=== PATIENT | male | born 1945 | race Caucasian/White ===

== ENCOUNTER 2023-12-25 18:56 | Inpatient (IN) | payer MEDICARE, OTHER ==
[~2023-12-25] VITALS: Ht 175.3 cm; Wt 93.4 kg
[2023-12-25] MEDS ORDERED: AMIODARONE HCL 150 MG/3 ML VIAL IV ONE (20:18)
[2023-12-25] MEDS: AMIODARONE HCL IV 150 MG in IV DEXTROSE 5% 100 ML IV ONE (20:45)
[2023-12-25] MEDS ORDERED: HYDROMORPHONE 1 MG/1 ML DISP.SYRIN ONE (20:57)
[2023-12-25] MEDS: AMIODARONE HCL IV 450 MG in IV DEXTROSE 5% 250 ML IV PRN (21:18)
[2023-12-25] MEDS: HYDROMORPHONE 1 MG/1 ML DISP.SYRIN IV ONE (21:20)
[2023-12-25] MEDS ORDERED: ONDANSETRON 4 MG/2 ML VIAL ONE (21:22)
[2023-12-25] MEDS: ONDANSETRON 4 MG/2 ML VIAL IV ONE (21:23)
[2023-12-25 21:39] LABS: EOSINOPHILS # (AUTO) 0.1 K/uL (0.0-0.7); EOSINOPHILS % (AUTO) 0.4 % (0.0-7.0); LYMPHOCYTES # (AUTO) 1.4 K/uL (0.8-4.8)
[2023-12-25 21:41] LABS: ALANINE AMINOTRANSFERASE 327 U/L (16-63); ALKALINE PHOSPHATASE 130 U/L (50-136); ASPARTATE AMINOTRANSFERASE 641 U/L (15-37); BILIRUBIN,DIRECT 2.5 mg/dL (0.0-0.2); BILIRUBIN,TOTAL 4.7 mg/dL (0.2-1.0); CARBON DIOXIDE 12 mmol/L (21-32); CHLORIDE 107 mmol/L (98-107); CREATININE 3.2 mg/dL (0.6-1.3); GLUCOSE 109 mg/dL (74-106); SODIUM SERUM 139 mmol/L (136-145); TOTAL PROTEIN, SERUM 6.2 g/dL (6.4-8.2); UREA NITROGEN, BLOOD 51 mg/dL (7-18)
[2023-12-25] MEDS: IV NORMAL SALINE 500 ML BAG IV ONE (21:45)
[2023-12-25 21:47] LABS: BASOPHILS # (AUTO) 0.2 K/UL (0.0-0.2); DIFFERENTIAL COMMENT 1; LYMPHOCYTES % (AUTO) 7.4 % (20.5-51.5); MEAN CORPUSCULAR HGB CONC 32 g/dL (32.5-36.3); MEAN CORPUSCULAR VOLUME 97.4 fL (73.0-96.2); MONOCYTES # (AUTO) 1.1 K/uL (0.1-1.30); MONOCYTES % (AUTO) 5.8 % (0.0-11.0); NEUTROPHILS # (AUTO) 16.6 K/uL (1.8-8.9); NEUTROPHILS % (AUTO) 85.4 % (38.5-71.5); PLATELET COUNT (AUTO) 241 K/uL (152-348); RED BLOOD CELL COUNT(AUTO) 6.53 MIL/uL (4.06-5.63); RED CELL DISTRIBUTION WIDTH 17.4 % (12.1-16.2); WHITE BLOOD COUNT (AUTO) 19.5 K/uL (3.6-10.2)
[2023-12-25 21:48] LABS: ALBUMIN 3.2 g/dL (3.4-5.0); LIPASE 13 U/L (16-77)
[2023-12-25 21:49] LABS: AMYLASE 30 U/L (25-115)
[2023-12-25 21:50] LABS: HEMATOCRIT 63.6 % (36.7-47.1); HEMOGLOBIN 20.2 g/dL (12.5-16.3)
[2023-12-25 21:51] LABS: POTASSIUM 8.6 mmol/L (3.5-5.1)
[2023-12-25] MEDS: ETOMIDATE 20 MG/10 ML VIAL IV ONE (21:53)
[2023-12-25] MEDS: SUCCINYLCHOLINE CHLORIDE 200 MG/10 ML VIAL IV ONE (21:54)
[2023-12-25] MEDS ORDERED: PROPOFOL 100 ML ONE (21:57)
[2023-12-25] MEDS ORDERED: PHENYLEPHRINE 10 MG/1 ML VIAL ONE ×2 (22:02→22:09)
[2023-12-25] MEDS: PHENYLEPHRINE 10 MG/1 ML VIAL ONE (22:11)
[2023-12-25] MEDS ORDERED: PHENYLEPHRINE IV 50 MG in IV NORMAL SALINE 245 ML IV PRN (22:15)
[2023-12-25 22:21] LABS: NT-PRO BNP 42996 pg/mL (0-125)
[2023-12-25] MEDS: PHENYLEPHRINE IV 50 MG in IV NORMAL SALINE 245 ML IV PRN (22:30)
[2023-12-25] MEDS ORDERED: CALCIUM CHLORIDE 1 GM/10 ML DISP.SYRIN IVP ONE (22:55)
[2023-12-25] MEDS ORDERED: FUROSEMIDE 20 MG/2 ML VIAL ONE (22:56)
[2023-12-25] MEDS ORDERED: SODIUM BICARBONATE 8.4% 50 MEQ/50 ML DISP.SYRIN IV ONE (22:56)
[2023-12-25] MEDS ORDERED: INSULIN REGULAR, HUMAN 300 UNIT/3 ML VIAL ONE (22:57)
[2023-12-25] MEDS ORDERED: DEXTROSE 50% 50 ML DISP.SYRIN ONE (22:59)
[2023-12-25] MEDS: INSULIN REGULAR, HUMAN 300 UNIT/3 ML VIAL IV ONE (23:00)
[2023-12-25] MEDS: CALCIUM CHLORIDE 1 GM/10 ML DISP.SYRIN IVP ONE (23:00)
[2023-12-25] MEDS: DEXTROSE 50% 50 ML DISP.SYRIN IV ONE (23:00)
[2023-12-25] MEDS: SODIUM BICARBONATE 8.4% 50 MEQ/50 ML DISP.SYRIN IV ONE (23:00)
[2023-12-25] MEDS: FUROSEMIDE 20 MG/2 ML VIAL IVP ONE (23:00)
[2023-12-25] MEDS ORDERED: ENOXAPARIN SODIUM 100 MG/ML DISP.SYRIN SQ ONE (23:00)
[2023-12-25] MEDS: PROPOFOL 100 ML IV PRN (23:15)
[2023-12-25 23:24] LABS: ANISOCYTOSIS 1+; BAND % (MANUAL) 1 % (0-10); LYMPHOCYTES % (MANUAL) 8 % (20-40); MONOCYTES % (MANUAL) 6 % (2-10); NEUTROPHILS % (MANUAL) 85 % (42-75); PLATELET ESTIMATE ADEQU
[2023-12-25 23:52] LABS: CALCIUM 10.2 mg/dL (8.5-10.1); CARBON DIOXIDE 14 mmol/L (21-32); CHLORIDE 107 mmol/L (98-107); CREATININE 3.4 mg/dL (0.6-1.3); GLUCOSE 171 mg/dL (74-106); SODIUM SERUM 141 mmol/L (136-145); UREA NITROGEN, BLOOD 53 mg/dL (7-18)
[2023-12-25 23:57] LABS: POTASSIUM 7.7 mmol/L (3.5-5.1)
[2023-12-26] VITALS (59 sets, daily range): BP systolic 68–166; BP diastolic 35–118; TEMP 95.5–99.1
[2023-12-26 00:22] LABS: ABG BASE EXCESS -18.6 mmol/L (-2.0-2.0); ABG HCO3 9.3 mmol/L (22.0-26.0); ABG PCO2 29.8 mmHg (35.0-48.0); ABG PH 7.111 (7.340-7.440); ABG PO2 220.5 mmHg (75.0-100.0); ABG SITE LEFT FEMORAL; AaDO2 99.1 mmHg; MetHb 0.8 % (0.0-1.5); O2Hb 98.5 % (94.0-97.0); VT, ABG 550 mL
[2023-12-26] MEDS ORDERED: SODIUM BICARBONATE 8.4% 50 MEQ/50 ML DISP.SYRIN IV ONE ×2 (00:52→03:57)
[2023-12-26 00:55] LABS: LACTIC ACID 10.4 mmol/L (0.4-2.0)
[2023-12-26] MEDS ORDERED: MAGNESIUM HYDROXIDE 30 ML LIQUID UDC PO PRN (01:00)
[2023-12-26] MEDS: SODIUM BICARBONATE 8.4% 50 MEQ/50 ML DISP.SYRIN IV ONE ×2 (01:00→04:57)
[2023-12-26] MEDS ORDERED: REMEDY ESSENTIAL ZINC PASTE 113 GM TP PRN (01:00)
[2023-12-26] MEDS ORDERED: ONDANSETRON 4 MG/2 ML VIAL IV PRN (01:00)
[2023-12-26] MEDS ORDERED: ZOLPIDEM 5 MG TABLET PO PRN (01:00)
[2023-12-26] MEDS: IV NORMAL SALINE 1000 ML BAG IV ONE (01:04)
[2023-12-26 01:45] LABS: ABG BASE EXCESS -12.2 mmol/L (-2.0-2.0); ABG HCO3 11.5 mmol/L (22.0-26.0); ABG PCO2 24.2 mmHg (35.0-48.0); ABG PH 7.295 (7.340-7.440); ABG PO2 349.6 mmHg (75.0-100.0); ABG SITE LEFT FEMORAL; AaDO2 99.7 mmHg; COHb 0.3 % (0.0-3.9); O2Hb 98.7 % (94.0-97.0); VT, ABG 550 mL
[2023-12-26] MEDS: ENOXAPARIN SODIUM 100 MG/ML DISP.SYRIN SQ ONE (03:05)
[2023-12-26] MEDS ORDERED: PIPERACILLIN/TAZOBACTAM/D5W 50 ML IV ONE (03:46)
[2023-12-26] MEDS ORDERED: SODIUM POLYSTYRENE SULFONATE 15 G/60 ML LIQUID UDC ONE (03:55)
[2023-12-26] MEDS: PIPERACILLIN SODIUM/TAZOBACTAM 3.375 G in IV DEXTROSE 5% 50 ML IV ONE (04:12)
[2023-12-26] MEDS: SODIUM POLYSTYRENE SULFONATE 15 G/60 ML LIQUID UDC PO ONE (04:21)
[2023-12-26] MEDS: SODIUM BICARBONATE 8.4% 150 MEQ in IV D5W 1000ML 1,000 ML IV PRN (04:50)
[2023-12-26] MEDS: PHENYLEPHRINE 10 MG/1 ML VIAL ONE (04:56)
[2023-12-26] MEDS ORDERED: ETOMIDATE 20 MG/10 ML VIAL ONE (05:00)
[2023-12-26] MEDS ORDERED: CALCIUM CHLORIDE 1 GM/10 ML DISP.SYRIN IVP ONE (05:36)
[2023-12-26] MEDS ORDERED: NOREPINEPHRINE BITARTRATE 4 MG/4 ML VIAL IV ONE (07:35)
[2023-12-26] MEDS ORDERED: NOREPINEPHRINE BITARTRATE 8 MG in IV NORMAL SALINE 242 ML IV PRN (07:45)
[2023-12-26] MEDS ORDERED: DEXTROSE 50% 50 ML DISP.SYRIN IV PRN (08:30)
[2023-12-26] MEDS ORDERED: INSULIN REGULAR, HUMAN 300 UNIT/3 ML VIAL SQ PRN ×2 (08:30→14:30)
[2023-12-26] MEDS: PHENYLEPHRINE IV 100 MG in IV NORMAL SALINE 240 ML IV PRN ×2 (09:00→15:58)
[2023-12-26] MEDS ORDERED: PANTOPRAZOLE SODIUM 40 MG VIAL ONE (09:24)
[2023-12-26 09:29] LABS: DIFFERENTIAL COMMENT 0; MONOCYTES # (AUTO) 0.5 K/uL (0.1-1.30)
[2023-12-26] MEDS: PANTOPRAZOLE SODIUM 40 MG VIAL IV SCH (09:31)
[2023-12-26] MEDS: NOREPINEPHRINE BITARTRATE 8 MG in IV NORMAL SALINE 242 ML IV PRN (09:37)
[2023-12-26 09:40] LABS: CALCIUM 10.3 mg/dL (8.5-10.1); CARBON DIOXIDE 11 mmol/L (21-32); CHLORIDE 109 mmol/L (98-107); CREATININE 3.1 mg/dL (0.6-1.3); GLUCOSE 61 mg/dL (74-106); POTASSIUM 6.1 mmol/L (3.5-5.1); SODIUM SERUM 145 mmol/L (136-145); UREA NITROGEN, BLOOD 46 mg/dL (7-18)
[2023-12-26 09:47] LABS: BASOPHILS % (AUTO) 0.2 % (0.0-2.0); HEMOGLOBIN 19.2 g/dL (12.5-16.3); LYMPHOCYTES # (AUTO) 1.1 K/uL (0.8-4.8); MEAN CORPUSCULAR HEMOGLOBIN 30.2 uug (23.8-33.4); MEAN CORPUSCULAR HGB CONC 31 g/dL (32.5-36.3); MEAN CORPUSCULAR VOLUME 96.6 fL (73.0-96.2); MONOCYTES % (AUTO) 2.7 % (0.0-11.0); NEUTROPHILS # (AUTO) 17.1 K/uL (1.8-8.9); NEUTROPHILS % (AUTO) 91.1 % (38.5-71.5); PLATELET COUNT (AUTO) 93 K/uL (152-348); RED BLOOD CELL COUNT(AUTO) 6.34 MIL/uL (4.06-5.63); RED CELL DISTRIBUTION WIDTH 17.6 % (12.1-16.2); WHITE BLOOD COUNT (AUTO) 18.8 K/uL (3.6-10.2)
[2023-12-26 10:05] LABS: HEMATOCRIT 61.3 % (36.7-47.1)
[2023-12-26] MEDS ORDERED: PROPOFOL 100 ML ONE (10:34)
[2023-12-26] MEDS ORDERED: DEXTROSE 25% 10 ML DISP.SYRIN IV ONE (11:30)
[2023-12-26] MEDS ORDERED: IV NS 1000 ML 1,000 ML IV PRN (11:45)
[2023-12-26 11:50] LABS: ALBUMIN 2.6 g/dL (3.4-5.0); BILIRUBIN,DIRECT 3.3 mg/dL (0.0-0.2); BILIRUBIN,TOTAL 5.6 mg/dL (0.2-1.0); TOTAL PROTEIN, SERUM 4.9 g/dL (6.4-8.2)
[2023-12-26] MEDS: BLOOD SUGAR DIAGNOSTIC 1 EACH STRIP VI SCH ×3 (11:57→18:25)
[2023-12-26] MEDS ORDERED: DEXTROSE 50% 50 ML DISP.SYRIN ONE ×3 (11:58→17:16)
[2023-12-26] MEDS ORDERED: PIPERACILLIN SODIUM/TAZOBACTAM 3.375 G in IV DEXTROSE 5% 50 ML IV SCH (12:00)
[2023-12-26] MEDS: DEXTROSE 50% 50 ML DISP.SYRIN IV ONE ×2 (12:00→12:51)
[2023-12-26] MEDS: NOREPINEPHRINE BITARTRATE 32 MG in IV NORMAL SALINE 218 ML IV PRN (12:11)
[2023-12-26] MEDS: PIPERACILLIN/TAZO 2.25 G in IV DEXTROSE 5% 50 ML IV SCH (12:37)
[2023-12-26] MEDS ORDERED: HEPARIN/D5W DRIP 500 ML IV PRN ×2 (12:41→12:45)
[2023-12-26] MEDS ORDERED: HEPARIN SODIUM,PORCINE 5,000 UNITS/ML VIAL IV ONE (12:45)
[2023-12-26] MEDS: INSULIN REGULAR, HUMAN 300 UNIT/3 ML VIAL IV ONE (12:51)
[2023-12-26 13:00] LABS: ABG BASE EXCESS -12.1 mmol/L (-2.0-2.0); ABG HCO3 10.5 mmol/L (22.0-26.0); ABG PCO2 20.6 mmHg (35.0-48.0); ABG PH 7.327 (7.340-7.440); ABG PO2 76.3 mmHg (75.0-100.0); ABG SITE RIGHT RADIAL; ABG TOTAL HEMOGLOBIN 20.5 G/dL (14.0-18.0); AaDO2 94.7 mmHg; COHb 0.3 % (0.0-3.9); MetHb 0.5 % (0.0-1.5); VT, ABG 550 mL
[2023-12-26] MEDS ORDERED: HEPARIN SODIUM,PORCINE 5,000 UNITS/ML VIAL ONE (13:11)
[2023-12-26] MEDS: HEPARIN SODIUM,PORCINE 5,000 UNITS/ML VIAL SQ SCH (13:13)
[2023-12-26] MEDS ORDERED: VASOPRESSIN 20 UNIT in IV NORMAL SALINE 40 ML IV PRN (13:30)
[2023-12-26 14:35] LABS: CALCIUM 9.8 mg/dL (8.5-10.1); CARBON DIOXIDE 16 mmol/L (21-32); CHLORIDE 108 mmol/L (98-107); CREATININE 3.5 mg/dL (0.6-1.3); GLUCOSE 125 mg/dL (74-106); POTASSIUM 5.9 mmol/L (3.5-5.1); SODIUM SERUM 146 mmol/L (136-145); UREA NITROGEN, BLOOD 47 mg/dL (7-18)
[2023-12-26 15:23] LABS: HEMATOCRIT 60.1 % (36.7-47.1); HEMOGLOBIN 18.7 g/dL (12.5-16.3)
[2023-12-26] MEDS: DEXTROSE 50% 50 ML DISP.SYRIN IV PRN (17:18)
[2023-12-26] MEDS ORDERED: methylPREDNISolone SOD SUCC 40 MG/ML VIAL IV SCH (18:00)
[2023-12-26] MEDS: PROPOFOL 100 ML IV PRN (18:07)
[2023-12-26] MEDS ORDERED: ALPR0.5T8 PO (18:13)
[2023-12-26] MEDS ORDERED: CARB1TAB21 PO (18:14)
[2023-12-26] MEDS ORDERED: MONT10TA33 PO (18:17)
[2023-12-26] MEDS ORDERED: APIX5TAB PO (18:18)
[2023-12-26] MEDS ORDERED: DAPA5TAB PO (18:19)
[2023-12-26] MEDS ORDERED: ZOLP5TAB8 PO (18:25)
[2023-12-26] MEDS ORDERED: FURO20TA4 PO (18:26)
[2023-12-26] MEDS ORDERED: HYDROCORTISONE SOD SUCCINATE 100 MG/2 ML VIAL IV ONE (18:28)
[2023-12-26] MEDS: HYDROCORTISONE SOD SUCCINATE 100 MG/2 ML VIAL IV SCH (18:31)
[2023-12-26 18:34] LABS: BAND % (MANUAL) 8 % (0-10); LYMPHOCYTES % (MANUAL) 5 % (20-40); MONOCYTES % (MANUAL) 4 % (2-10); NEUTROPHILS % (MANUAL) 83 % (42-75); PLATELET ESTIMATE DECREASED
[2023-12-26 18:35] LABS: ANISOCYTOSIS 1+
[2023-12-27] VITALS (96 sets, daily range): BP systolic 65–133; BP diastolic 52–108; TEMP 96.8–100; O2SAT 91–99
[2023-12-27] MEDS ORDERED: DEXTROSE 50% 50 ML DISP.SYRIN ONE ×2 (00:03→09:17)
[2023-12-27] MEDS ORDERED: HYDROCORTISONE SOD SUCCINATE 100 MG/2 ML VIAL IV ONE ×3 (00:12→13:10)
[2023-12-27] MEDS: IV 10% DEXTROSE 1,000 ML IV PRN (00:55)
[2023-12-27] MEDS ORDERED: PROPOFOL 100 ML ONE (02:06)
[2023-12-27] MEDS ORDERED: PHENYLEPHRINE 10 MG/1 ML VIAL ONE (04:11)
[2023-12-27 04:46] LABS: BASOPHILS % (AUTO) 0.1 % (0.0-2.0); EOSINOPHILS # (AUTO) 0.1 K/uL (0.0-0.7); EOSINOPHILS % (AUTO) 0.6 % (0.0-7.0); HEMOGLOBIN 18.9 g/dL (12.5-16.3); LYMPHOCYTES # (AUTO) 0.6 K/uL (0.8-4.8); LYMPHOCYTES % (AUTO) 3.2 % (20.5-51.5); MEAN CORPUSCULAR HEMOGLOBIN 30.8 uug (23.8-33.4); MEAN CORPUSCULAR HGB CONC 31 g/dL (32.5-36.3); MEAN CORPUSCULAR VOLUME 99.6 fL (73.0-96.2); MONOCYTES # (AUTO) 1.1 K/uL (0.1-1.30); MONOCYTES % (AUTO) 5.9 % (0.0-11.0); NEUTROPHILS % (AUTO) 90.2 % (38.5-71.5); PLATELET COUNT (AUTO) 53 K/uL (152-348); RED BLOOD CELL COUNT(AUTO) 6.13 MIL/uL (4.06-5.63); RED CELL DISTRIBUTION WIDTH 18.4 % (12.1-16.2); WHITE BLOOD COUNT (AUTO) 18.9 K/uL (3.6-10.2)
[2023-12-27 04:52] LABS: DIFFERENTIAL COMMENT 1; HEMATOCRIT 61.1 % (36.7-47.1)
[2023-12-27 04:57] LABS: ALKALINE PHOSPHATASE 265 U/L (50-136); BILIRUBIN,TOTAL 7.5 mg/dL (0.2-1.0); CALCIUM 8.9 mg/dL (8.5-10.1); CARBON DIOXIDE 15 mmol/L (21-32); CHLORIDE 105 mmol/L (98-107); CREATINE KINASE, TOTAL 435 U/L (39-308); GLUCOSE 139 mg/dL (74-106); PHOSPHOROUS 6.9 mg/dL (2.5-4.9); SODIUM SERUM 140 mmol/L (136-145); TOTAL PROTEIN, SERUM 4.7 g/dL (6.4-8.2)
[2023-12-27 05:14] LABS: POTASSIUM 7.1 mmol/L (3.5-5.1)
[2023-12-27 05:53] LABS: BAND % (MANUAL) 3 % (0-10)
[2023-12-27 05:54] LABS: LYMPHOCYTES % (MANUAL) 6 % (20-40); MONOCYTES % (MANUAL) 3 % (2-10); NEUTROPHILS % (MANUAL) 88 % (42-75)
[2023-12-27 05:56] LABS: ANISOCYTOSIS 2+; PLATELET ESTIMATE DECREASED
[2023-12-27] MEDS: AMIODARONE HCL IV 450 MG in IV DEXTROSE 5% 250 ML IV PRN (08:36)
[2023-12-27] MEDS ORDERED: SODIUM BICARBONATE 8.4% 50 MEQ/50 ML DISP.SYRIN IV ONE (08:41)
[2023-12-27] MEDS: SODIUM BICARBONATE 8.4% 50 MEQ/50 ML DISP.SYRIN IV ONE (08:43)
[2023-12-27] MEDS ORDERED: PANTOPRAZOLE SODIUM 40 MG VIAL ONE (08:45)
[2023-12-27] MEDS ORDERED: ENOXAPARIN SODIUM 100 MG/ML DISP.SYRIN SQ SCH (09:00)
[2023-12-27] MEDS: MEROPENEM 500 MG in IV NORMAL SALINE 50 ML IV SCH (09:09)
[2023-12-27 09:15] LABS: THYROID STIMULATING HORMONE 2.631 mIU/mL (0.358-3.740)
[2023-12-27] MEDS: DEXTROSE 50% 50 ML DISP.SYRIN IV ONE (09:29)
[2023-12-27] MEDS: INSULIN REGULAR, HUMAN 300 UNIT/3 ML VIAL IV ONE (09:32)
[2023-12-27 10:18] LABS: BASOPHILS % (AUTO) 0.1 % (0.0-2.0); EOSINOPHILS # (AUTO) 0.2 K/uL (0.0-0.7); EOSINOPHILS % (AUTO) 1.3 % (0.0-7.0); HEMATOCRIT 58.5 % (36.7-47.1); HEMOGLOBIN 17.4 g/dL (12.5-16.3); LYMPHOCYTES # (AUTO) 0.4 K/uL (0.8-4.8); LYMPHOCYTES % (AUTO) 2.6 % (20.5-51.5); MEAN CORPUSCULAR HEMOGLOBIN 30.3 uug (23.8-33.4); MEAN CORPUSCULAR HGB CONC 30 g/dL (32.5-36.3); MEAN CORPUSCULAR VOLUME 102.1 fL (73.0-96.2); MONOCYTES % (AUTO) 6.1 % (0.0-11.0); NEUTROPHILS # (AUTO) 15.4 K/uL (1.8-8.9); NEUTROPHILS % (AUTO) 89.9 % (38.5-71.5); PLATELET COUNT (AUTO) 57 K/uL (152-348); RED BLOOD CELL COUNT(AUTO) 5.73 MIL/uL (4.06-5.63); RED CELL DISTRIBUTION WIDTH 18.3 % (12.1-16.2); WHITE BLOOD COUNT (AUTO) 17.1 K/uL (3.6-10.2)
[2023-12-27 10:23] LABS: DIFFERENTIAL COMMENT 1
[2023-12-27 11:06] LABS: ALANINE AMINOTRANSFERASE 2913 U/L (16-63); ALBUMIN 1.9 g/dL (3.4-5.0); ALKALINE PHOSPHATASE 285 U/L (50-136); BILIRUBIN,TOTAL 7.2 mg/dL (0.2-1.0); CALCIUM 7.9 mg/dL (8.5-10.1); CARBON DIOXIDE 11 mmol/L (21-32); CHLORIDE 103 mmol/L (98-107); CREATININE 4.5 mg/dL (0.6-1.3); GLUCOSE 285 mg/dL (74-106); MAGNESIUM 1.7 mg/dL (1.8-2.4); SODIUM SERUM 143 mmol/L (136-145); TOTAL PROTEIN, SERUM 3.8 g/dL (6.4-8.2); UREA NITROGEN, BLOOD 49 mg/dL (7-18)
[2023-12-27 11:09] LABS: PHOSPHOROUS 8.8 mg/dL (2.5-4.9); POTASSIUM 6.9 mmol/L (3.5-5.1)
[2023-12-27 12:05] LABS: ASPARTATE AMINOTRANSFERASE 6027 U/L (15-37)
[2023-12-27] MEDS ORDERED: methylPREDNISolone SOD SUCC 125 MG/2 ML VIAL ONE (13:04)
[2023-12-27] MEDS ORDERED: MAGNESIUM SULFATE/D5W 100 ML ONE (14:01)
[2023-12-27] MEDS: MAGNESIUM SULFATE/D5W 100 ML IV ONE (14:03)
[2023-12-27] MEDS ORDERED: SODIUM BICARBONATE 8.4% 50 MEQ in IV D5W 1000ML 1,000 ML IV PRN (15:00)
[2023-12-27] MEDS: SODIUM BICARBONATE 8.4% 50 MEQ in IV D5W 1000ML 1,000 ML IV PRN (15:49)
[2023-12-27] MEDS: IV NORMAL SALINE 500 ML IV ONE (16:23)
[2023-12-27] MEDS ORDERED: INSULIN REGULAR, HUMAN 300 UNIT/3 ML VIAL SQ PRN ×2 (16:30)
[2023-12-27] MEDS: BLOOD SUGAR DIAGNOSTIC 1 EACH STRIP VI SCH (16:32)
[2023-12-27 17:36] LABS: BAND % (MANUAL) 13 % (0-10); LYMPHOCYTES % (MANUAL) 2 % (20-40); MONOCYTES % (MANUAL) 4 % (2-10); NEUTROPHILS % (MANUAL) 81 % (42-75)
[2023-12-27 17:37] LABS: PLATELET ESTIMATE DECREASED
[2023-12-27 17:38] LABS: ANISOCYTOSIS 1+; TEAR DROP CELLS 1+
[2023-12-27] MEDS: PANTOPRAZOLE SODIUM 40 MG VIAL IV SCH (21:48)
[2023-12-28] VITALS (100 sets, daily range): BP systolic 69–127; BP diastolic 42–98; TEMP 92.8–98.7; O2SAT 24–98
[2023-12-28 00:01] LABS: ABG BASE EXCESS -18.2 mmol/L (-2.0-2.0); ABG HCO3 5.4 mmol/L (22.0-26.0); ABG PH 7.245 (7.340-7.440); ABG PO2 148.2 mmHg (75.0-100.0); ABG SITE RIGHT BRACHIAL; ABG TOTAL HEMOGLOBIN 18.9 G/dL (14.0-18.0); AaDO2 98.6 mmHg; COHb 0.3 % (0.0-3.9); MetHb 0.7 % (0.0-1.5); O2Hb 97.7 % (94.0-97.0); VT, ABG 550 mL
[2023-12-28] MEDS: DEXTROSE 50% 50 ML DISP.SYRIN IV PRN (00:23)
[2023-12-28 01:13] LABS: ABG BASE EXCESS -19.9 mmol/L (-2.0-2.0); ABG HCO3 6.9 mmol/L (22.0-26.0); ABG PCO2 20.3 mmHg (35.0-48.0); ABG PH 7.147 (7.340-7.440); ABG PO2 94.5 mmHg (75.0-100.0); ABG SITE RIGHT RADIAL; ABG TOTAL HEMOGLOBIN 16.2 G/dL (14.0-18.0); AaDO2 95.2 mmHg; COHb 1.2 % (0.0-3.9); MetHb 0.9 % (0.0-1.5); O2Hb 92.9 % (94.0-97.0); VT, ABG 550 mL
[2023-12-28 04:41] LABS: BASOPHILS # (AUTO) 0.1 K/UL (0.0-0.2); EOSINOPHILS # (AUTO) 0.4 K/uL (0.0-0.7); HEMOGLOBIN 15.5 g/dL (12.5-16.3); MONOCYTES # (AUTO) 1.1 K/uL (0.1-1.30)
[2023-12-28 04:43] LABS: BASOPHILS % (AUTO) 0.4 % (0.0-2.0); HEMATOCRIT 52.4 % (36.7-47.1); LYMPHOCYTES # (AUTO) 0.7 K/uL (0.8-4.8); LYMPHOCYTES % (AUTO) 3.9 % (20.5-51.5); MEAN CORPUSCULAR HEMOGLOBIN 30.9 uug (23.8-33.4); MEAN CORPUSCULAR HGB CONC 30 g/dL (32.5-36.3); MEAN CORPUSCULAR VOLUME 104.5 fL (73.0-96.2); MONOCYTES % (AUTO) 5.7 % (0.0-11.0); NEUTROPHILS # (AUTO) 16.3 K/uL (1.8-8.9); RED BLOOD CELL COUNT(AUTO) 5.01 MIL/uL (4.06-5.63); RED CELL DISTRIBUTION WIDTH 18.9 % (12.1-16.2); WHITE BLOOD COUNT (AUTO) 18.5 K/uL (3.6-10.2)
[2023-12-28 04:48] LABS: DIFFERENTIAL COMMENT 1; PLATELET COUNT (AUTO) 40 K/uL (152-348)
[2023-12-28 04:56] LABS: ALANINE AMINOTRANSFERASE 3144 U/L (16-63)
[2023-12-28 05:12] LABS: ABG BASE EXCESS -21.4 mmol/L (-2.0-2.0); ABG HCO3 6.1 mmol/L (22.0-26.0); ABG PCO2 19.6 mmHg (35.0-48.0); ABG PO2 104.3 mmHg (75.0-100.0); ABG SITE RIGHT RADIAL; AaDO2 95.9 mmHg; COHb 1.1 % (0.0-3.9); MetHb 0.9 % (0.0-1.5); O2Hb 93.8 % (94.0-97.0); VT, ABG 550 mL
[2023-12-28 05:32] LABS: ALBUMIN 1.8 g/dL (3.4-5.0); ALKALINE PHOSPHATASE 504 U/L (50-136); ASPARTATE AMINOTRANSFERASE < 5 U/L (15-37); BILIRUBIN,DIRECT 7.2 mg/dL (0.0-0.2); BILIRUBIN,TOTAL 12.4 mg/dL (0.2-1.0); CALCIUM 7.1 mg/dL (8.5-10.1); CHLORIDE 96 mmol/L (98-107); GLUCOSE 268 mg/dL (74-106); MAGNESIUM 1.7 mg/dL (1.8-2.4); SODIUM SERUM 135 mmol/L (136-145); TOTAL PROTEIN, SERUM 3.6 g/dL (6.4-8.2); UREA NITROGEN, BLOOD 35 mg/dL (7-18)
[2023-12-28 05:39] LABS: CARBON DIOXIDE 9 mmol/L (21-32); PHOSPHOROUS 8.5 mg/dL (2.5-4.9); POTASSIUM 6.4 mmol/L (3.5-5.1)
[2023-12-28 05:43] LABS: LACTIC ACID 22.5 mmol/L (0.4-2.0)
[2023-12-28 06:04] LABS: ANISOCYTOSIS 2+; BAND % (MANUAL) 2 % (0-10); LYMPHOCYTES % (MANUAL) 2 % (20-40); MONOCYTES % (MANUAL) 4 % (2-10); NEUTROPHILS % (MANUAL) 92 % (42-75); PLATELET ESTIMATE MARKED DECREASED
[2023-12-28] MEDS: SODIUM BICARBONATE 8.4% 50 MEQ/50 ML DISP.SYRIN IV ONE (08:12)
[2023-12-28] MEDS: CALCIUM CHLORIDE 1 GM in IV NORMAL SALINE 100 ML IV ONE (10:08)
[2023-12-28] MEDS: IV NORMAL SALINE 500 ML IV PRN (10:09)
[2023-12-28] MEDS: SODIUM BICARBONATE 8.4% 150 MEQ in IV D5W 1000ML 1,000 ML IV PRN (10:35)
[2023-12-28] MEDS: MAGNESIUM SULFATE/D5W 100 ML IV SCH (13:01)
[2023-12-28 13:20] LABS: CALCIUM 7.9 mg/dL (8.5-10.1); CHLORIDE 97 mmol/L (98-107); GLUCOSE 269 mg/dL (74-106); SODIUM SERUM 137 mmol/L (136-145); UREA NITROGEN, BLOOD 36 mg/dL (7-18)
[2023-12-28 13:27] LABS: CARBON DIOXIDE 10 mmol/L (21-32); POTASSIUM 6.6 mmol/L (3.5-5.1)
[2023-12-28] MEDS: ALBUMIN HUMAN 25% 50 ML IV PRN (18:28)
[2023-12-28] MEDS: ALBUMIN HUMAN 25% 100 ML IV SCH (23:40)
[2023-12-29] VITALS (93 sets, daily range): BP systolic 75–137; BP diastolic 49–86; TEMP 98–101.1; O2SAT 46–94
[2023-12-29] MEDS: AMIODARONE HCL 150 MG/3 ML VIAL IV ONE (03:53)
[2023-12-29 04:19] LABS: BASOPHILS # (AUTO) 0.1 K/UL (0.0-0.2); BASOPHILS % (AUTO) 0.3 % (0.0-2.0); DIFFERENTIAL COMMENT 0; EOSINOPHILS # (AUTO) 0.6 K/uL (0.0-0.7); EOSINOPHILS % (AUTO) 2.5 % (0.0-7.0); HEMATOCRIT 42.7 % (36.7-47.1); HEMOGLOBIN 12.4 g/dL (12.5-16.3); LYMPHOCYTES # (AUTO) 0.2 K/uL (0.8-4.8); LYMPHOCYTES % (AUTO) 0.9 % (20.5-51.5); MEAN CORPUSCULAR HGB CONC 29 g/dL (32.5-36.3); MEAN CORPUSCULAR VOLUME 103.1 fL (73.0-96.2); MONOCYTES # (AUTO) 1.4 K/uL (0.1-1.30); MONOCYTES % (AUTO) 5.5 % (0.0-11.0); NEUTROPHILS # (AUTO) 23.4 K/uL (1.8-8.9); NEUTROPHILS % (AUTO) 90.8 % (38.5-71.5); RED BLOOD CELL COUNT(AUTO) 4.14 MIL/uL (4.06-5.63); WHITE BLOOD COUNT (AUTO) 25.8 K/uL (3.6-10.2)
[2023-12-29] MEDS ORDERED: ALBUMIN HUMAN 25% 50 ML ONE (04:21)
[2023-12-29 04:34] LABS: CARBON DIOXIDE 11 mmol/L (21-32); CHLORIDE 95 mmol/L (98-107); CREATININE 3.5 mg/dL (0.6-1.3); GLUCOSE 187 mg/dL (74-106); MAGNESIUM 1.8 mg/dL (1.8-2.4); PHOSPHOROUS 7.1 mg/dL (2.5-4.9); SODIUM SERUM 135 mmol/L (136-145); UREA NITROGEN, BLOOD 28 mg/dL (7-18)
[2023-12-29 04:42] LABS: POTASSIUM 6.3 mmol/L (3.5-5.1)
[2023-12-29 04:44] LABS: PLATELET COUNT (AUTO) 21 K/uL (152-348)
[2023-12-29] MEDS: VASOPRESSIN 40 UNIT in IV NORMAL SALINE 40 ML IV PRN (05:10)
[2023-12-29 05:52] LABS: ABG BASE EXCESS -18.7 mmol/L (-2.0-2.0); ABG HCO3 7.9 mmol/L (22.0-26.0); ABG PCO2 22.1 mmHg (35.0-48.0); ABG PH 7.172 (7.340-7.440); ABG PO2 73.9 mmHg (75.0-100.0); ABG SITE RIGHT RADIAL; ABG TOTAL HEMOGLOBIN 13.6 G/dL (14.0-18.0); AaDO2 91.3 mmHg; MetHb 1.7 % (0.0-1.5); O2Hb 87.5 % (94.0-97.0); VT, ABG 550 mL
[2023-12-29 06:54] LABS: LYMPHOCYTES % (MANUAL) 2 % (20-40); MONOCYTES % (MANUAL) 12 % (2-10); NEUTROPHILS % (MANUAL) 86 % (42-75)
[2023-12-29 06:55] LABS: ANISOCYTOSIS 1+; PLATELET ESTIMATE DECREASED
[2023-12-29] MEDS: DEXTROSE 50% 50 ML DISP.SYRIN IV ONE (08:22)
[2023-12-29] MEDS: INSULIN REGULAR, HUMAN 300 UNIT/3 ML VIAL IV ONE (08:24)
[2023-12-29] MEDS: SODIUM BICARBONATE 8.4% 50 MEQ/50 ML DISP.SYRIN IV ONE (08:34)
[2023-12-29 10:49] LABS: CALCIUM 7.7 mg/dL (8.5-10.1); CARBON DIOXIDE 12 mmol/L (21-32); CHLORIDE 97 mmol/L (98-107); CREATININE 3.7 mg/dL (0.6-1.3); GLUCOSE 128 mg/dL (74-106); POTASSIUM 6.1 mmol/L (3.5-5.1); SODIUM SERUM 137 mmol/L (136-145); UREA NITROGEN, BLOOD 28 mg/dL (7-18)
[2023-12-29] MEDS: ACETAMINOPHEN 325 MG TABLET PO PRN (20:54)
[2023-12-29] MEDS ORDERED: VANCOMYCIN 1000 MG VIAL ONE (22:24)
[2023-12-29] MEDS: VANCOMYCIN IV 2,000 MG in IV DEXTROSE 5% 500 ML IV ONE (23:50)
[2023-12-30] VITALS (80 sets, daily range): BP systolic 42–126; BP diastolic 17–77; TEMP 95–98.2; O2SAT 38–92
[2023-12-30 05:18] LABS: BASOPHILS # (AUTO) 0.1 K/UL (0.0-0.2); LYMPHOCYTES # (AUTO) 0.4 K/uL (0.8-4.8); LYMPHOCYTES % (AUTO) 1.6 % (20.5-51.5); MEAN CORPUSCULAR HEMOGLOBIN 31.6 uug (23.8-33.4); MEAN CORPUSCULAR VOLUME 106.5 fL (73.0-96.2); WHITE BLOOD COUNT (AUTO) 27.4 K/uL (3.6-10.2)
[2023-12-30 05:20] LABS: BASOPHILS % (AUTO) 0.3 % (0.0-2.0); EOSINOPHILS # (AUTO) 0.2 K/uL (0.0-0.7); EOSINOPHILS % (AUTO) 0.7 % (0.0-7.0); HEMATOCRIT 32.2 % (36.7-47.1); HEMOGLOBIN 9.5 g/dL (12.5-16.3); MEAN CORPUSCULAR HGB CONC 30 g/dL (32.5-36.3); MONOCYTES # (AUTO) 1.6 K/uL (0.1-1.30); MONOCYTES % (AUTO) 5.9 % (0.0-11.0); NEUTROPHILS # (AUTO) 25.1 K/uL (1.8-8.9); NEUTROPHILS % (AUTO) 91.5 % (38.5-71.5); RED BLOOD CELL COUNT(AUTO) 3.02 MIL/uL (4.06-5.63); RED CELL DISTRIBUTION WIDTH 19.2 % (12.1-16.2)
[2023-12-30 05:48] LABS: CHLORIDE 94 mmol/L (98-107); CREATININE 3.3 mg/dL (0.6-1.3); GLUCOSE 73 mg/dL (74-106); MAGNESIUM 1.9 mg/dL (1.8-2.4); SODIUM SERUM 136 mmol/L (136-145); TRIGLYCERIDES 165 MG/DL (30-150); UREA NITROGEN, BLOOD 24 mg/dL (7-18)
[2023-12-30 05:55] LABS: CALCIUM 7.3 mg/dL (8.5-10.1)
[2023-12-30 06:04] LABS: POTASSIUM 6.3 mmol/L (3.5-5.1)
[2023-12-30 06:05] LABS: CARBON DIOXIDE 10 mmol/L (21-32)
[2023-12-30 06:07] LABS: PLATELET COUNT (AUTO) 27 K/uL (152-348)
[2023-12-30 06:08] LABS: DIFFERENTIAL COMMENT 1
[2023-12-30 06:26] LABS: BAND % (MANUAL) 4 % (0-10)
[2023-12-30 06:27] LABS: ANISOCYTOSIS 2+; LYMPHOCYTES % (MANUAL) 4 % (20-40); MONOCYTES % (MANUAL) 4 % (2-10); NEUTROPHILS % (MANUAL) 88 % (42-75); PLATELET ESTIMATE DECREASED
[2023-12-30] MEDS ORDERED: EPINEPHRINE 5 MG in IV NORMAL SALINE 245 ML IV PRN (07:45)
[2023-12-30] MEDS: CALCIUM GLUCONATE IV 1 GM in IV NORMAL SALINE 100 ML IV ONE (08:12)
[2023-12-30] MEDS: EPINEPHRINE 10 MG in IV NORMAL SALINE 240 ML IV PRN (08:13)
[2023-12-30 08:24] LABS: ABG BASE EXCESS -23.5 mmol/L (-2.0-2.0); ABG HCO3 6.2 mmol/L (22.0-26.0); ABG PCO2 25.5 mmHg (35.0-48.0); ABG PH 7.004 (7.340-7.440); ABG PO2 137.8 mmHg (75.0-100.0); ABG SITE RIGHT RADIAL; ABG TOTAL HEMOGLOBIN 10.1 G/dL (14.0-18.0); AaDO2 97.3 mmHg; COHb 2.3 % (0.0-3.9); MetHb 3.2 % (0.0-1.5); O2Hb 92.5 % (94.0-97.0); VT, ABG 550 mL
[2023-12-30] MEDS ORDERED: IV 10% DEXTROSE 1,000 ML IV PRN (08:30)
[2023-12-30] MEDS: SODIUM CHLORIDE 4 MEQ/ML VIAL 154 MEQ in IV 10% DEXTROSE 1,000 ML IV PRN (09:34)
[2023-12-30 09:48] LABS: BILIRUBIN,TOTAL 26.3 mg/dL (0.2-1.0)
[2023-12-30 09:49] LABS: ALBUMIN 2.7 g/dL (3.4-5.0); BILIRUBIN,DIRECT 12.2 mg/dL (0.0-0.2); TOTAL PROTEIN, SERUM 3.2 g/dL (6.4-8.2)
[2023-12-30 11:06] LABS: LACTIC ACID 28.6 mmol/L (0.4-2.0)
[2023-12-30] MEDS ORDERED: VANCOMYCIN IV 500 MG in IV DEXTROSE 5% 100 ML IV PRN (12:00)
[2023-12-31 06:06] LABS: ALBUMIN 2.3 g/dL (2.9-4.4); ALPHA-1-GLOBULIN 0.2 g/dL (0.0-0.4); ALPHA-2-GLOBULIN 0.4 g/dL (0.4-1.0); BETA GLOBULIN 0.7 g/dL (0.7-1.3); GAMMA GLOBULIN 0.9 g/dL (0.4-1.8); GLOBULIN, TOTAL 2.2 g/dL (2.2-3.9); M-SPIKE 0.2 g/dL (Not Observed)
== END 2023-12-30 23:45 | DRG 870 ==
LOC: ER 18:59 → TRANSITION 22:45 → CCU 12-27 21:07
PROVIDERS: ADMIT Student in an Organized Health Care Education/Training Program; ATTEND Student in an Organized Health Care Education/Training Program
PROC: 5A1955Z Respiratory Ventilation, Greater than 96 Consecutive Hours (ICD-10-PCS; principal; 2023-12-25)
PROC: 0BH17EZ Insertion of Endotracheal Airway into Trachea, Via Natural or Artificial Opening (ICD-10-PCS; 2023-12-25)
PROC: 02HV33Z Insertion of Infusion Device into Superior Vena Cava, Percutaneous Approach (ICD-10-PCS; 2023-12-25)
PROC: B548ZZA Ultrasonography of Superior Vena Cava, Guidance (ICD-10-PCS; 2023-12-25)
PROC: 02HV33Z Insertion of Infusion Device into Superior Vena Cava, Percutaneous Approach (ICD-10-PCS; 2023-12-26)
PROC: B548ZZA Ultrasonography of Superior Vena Cava, Guidance (ICD-10-PCS; 2023-12-26)
PROC: 5A1D70Z Performance of Urinary Filtration, Intermittent, Less than 6 Hours Per Day (ICD-10-PCS; 2023-12-26)
PROC: 5A12012 Performance of Cardiac Output, Single, Manual (ICD-10-PCS; 2023-12-26)
PROC: 0DH673Z Insertion of Infusion Device into Stomach, Via Natural or Artificial Opening (ICD-10-PCS; 2023-12-26)
DX: A41.9 Sepsis, unspecified organism (principal); I63.9 Cerebral infarction, unspecified; R65.21 Severe sepsis with septic shock; N17.0 Acute kidney failure with tubular necrosis; K72.00 Acute and subacute hepatic failure without coma; J96.01 Acute respiratory failure with hypoxia; I26.99 Other pulmonary embolism without acute cor pulmonale; Z66 Do not resuscitate; K57.31 Diverticulosis of large intestine without perforation or abscess with bleeding; I50.21 Acute systolic (congestive) heart failure; E87.21 Acute metabolic acidosis; E87.20 Acidosis, unspecified; I48.19 Other persistent atrial fibrillation; I82.413 Acute embolism and thrombosis of femoral vein, bilateral; K80.00 Calculus of gallbladder with acute cholecystitis without obstruction; E11.52 Type 2 diabetes mellitus with diabetic peripheral angiopathy with gangrene; I96 Gangrene, not elsewhere classified; I50.1 Left ventricular failure, unspecified; R18.8 Other ascites; D68.59 Other primary thrombophilia; K92.2 Gastrointestinal hemorrhage, unspecified; K55.9 Vascular disorder of intestine, unspecified; E87.5 Hyperkalemia; Z95.1 Presence of aortocoronary bypass graft; I25.10 Atherosclerotic heart disease of native coronary artery without angina pectoris; Z79.01 Long term (current) use of anticoagulants; K42.9 Umbilical hernia without obstruction or gangrene; E66.01 Morbid (severe) obesity due to excess calories; Z68.30 Body mass index [BMI] 30.0-30.9, adult; D69.6 Thrombocytopenia, unspecified; D64.9 Anemia, unspecified; I46.9 Cardiac arrest, cause unspecified; H57.04 Mydriasis; R57.0 Cardiogenic shock; I35.0 Nonrheumatic aortic (valve) stenosis; I25.5 Ischemic cardiomyopathy; N18.9 Chronic kidney disease, unspecified; D75.1 Secondary polycythemia; E11.40 Type 2 diabetes mellitus with diabetic neuropathy, unspecified; E11.22 Type 2 diabetes mellitus with diabetic chronic kidney disease; E11.649 Type 2 diabetes mellitus with hypoglycemia without coma; H91.93 Unspecified hearing loss, bilateral
CPT/HCPCS: 36415; 36600; 70030-TC; 70450; 71045; 71250; 78445; 82533; 82803; 83605; 83690; 83735; 83970; 84100; 84132; 84155; 84165; 84443; 84478; 84480; 84481; 84484; 85018; 85025; 85730; 86706; 87040; 87350; 90937; 93005; 93307; 94002; 94003; 99082-TC; A4606; A4663; C9113; G0378; J0171; J0282; J0330; J0610; J1170; J1644; J1720; J1815; J1940; J2185; J2405; J2543; J2919; J3370; J3475; J3490; J7040; J7050; J7060; J7070; J7131; P9047